=== PATIENT | female | born 1990 | race Caucasian/White ===

== ENCOUNTER 2020-01-07 14:27 | Outpatient (REF) | payer OTHER, SELFPAY | END 2020-01-07 14:28 | disposition home or self-care (01) | LOC: HO.LNP 14:27 | PROVIDERS: Visit Provider Nurse Practitioner Family | DX: Z20.828 Contact with and (suspected) exposure to other viral communicable diseases (principal) | CPT/HCPCS: 87635 ==

== ENCOUNTER 2020-11-16 20:48 | Emergency (ER) | payer OTHER, SELFPAY ==
--- NOTE | ~2020-11-16 | XR_ITS ---
EXAMINATION: XR CHEST CLINICAL INFORMATION: Difficulty breathing COMPARISON: 08/24/2018 TECHNIQUE: 2 views of the chest were obtained. FINDINGS: No significant abnormality is noted involving the heart, lungs, mediastinum, bony thorax or soft tissues. XR/XR chest 2V IMPRESSION: Unremarkable examination.
[2020-11-16 21:25] VITALS: BP 129/82; PULSE 114; RESP 17; TEMP 36.9; O2SAT 98; BMI 39.0
--- NOTE | 2020-11-16 22:32 | ED_ITS ---
HPI - URI/Sore Throat General Chief Complaint: Upper Respiratory Symptoms Stated Complaint: covid symptoms Time Seen by Provider: 11/16/20 22:19 Source: patient Mode of arrival: ambulatory Limitations: no limitations History of Present Illness HPI Narrative: Patient comes emergency room complaining of mild cough, sinus pressure, headaches, nausea, no sense of smell, bilateral ear fullness. Patient's symptoms have been ongoing for about 4 days. Related Data Previous Rx's Medication Instructions Recorded doxycycline hyclate 100 mg tablet 100 mg PO BID 10 Days #20 tab 04/06/20 ciprofloxacin HCl 0.3 % eye drops 2 drp OPHTHALMIC (EYE) Q4H 2 Days 10/30/20 #10 ml fexofenadine 60 mg tablet (Ana 60 mg PO BID #14 tab 11/16/20 Allergy) fluticasone propionate 50 1 spray INTRANASAL BID #16 g 11/16/20 mcg/actuation nasal spray,suspension (Flonase Allergy Relief) Allergies Allergy/AdvReac Type Severity Reaction Status Date / Time clindamycin [CLINDAMYCIN] Allergy Intermediate RASH Verified 11/16/20 21:24 cefaclor [From CECLOR] Allergy Mild RASH Verified 11/16/20 21:24 latex [LATEX] Allergy Mild RASH Verified 11/16/20 21:24 Review of Systems Review of Systems: Constitutional : No Weight loss, No Fever, No Chills, No Night Sweats, No Fatigue, No Malaise ENT/Mouth : No Hearing loss, No Ear Pain, No Nasal Congestion, complaining of Sinus Pain, No Hoarseness, No sore throat, No Rhinorrhea, No Swallowing Difficulty, complaining of loss of smell, complaining of bilateral ear pressure Eyes: No Eye Pain, No Swelling, No Redness, No Foreign Body, No Discharge, No Vision Changes Cardiovascular : No Chest Pain, No SOB, No Dyspnea on Exertion, No Orthopnea, No Edema, No Palpitations Respiratory : Complaining of Cough, No Sputum, No Wheezing, No Smoke Exposure, No Dyspnea Gastrointestinal : No Nausea, No Vomiting, No Diarrhea, No Constipation, No abdominal Pain, No Hematochezia, No Melena Genitourinary : no irregular bleeding, No Dysuria, No Urinary Frequency, No Hematuria, No Urinary Incontinence, No Urgency, No Flank Pain, No Urinary Flow Changes, No Hesitancy Musculoskeletal : No joint pain, No Myalgias, No Joint Swelling Skin : No Skin Lesions, No rash Neuro : No Weakness, No Numbness, No Paresthesias, No Loss of Consciousness, No Dizziness, No Headache Psych : No Anxiety/Panic, No Depression, No SI/HI/AH/VH, No Social Issues, Heme/Lymph: No Bruising, No Bleeding,No Lymphadenopathy Endocrine : No Polyuria, No Polydipsia, No Temperature Intolerance [facility] Past Medical History Medical History Acne Marijuana smoker Obesity Surgical History H/O elbow surgery H/O myringotomy History of ear surgery History of laparoscopic appendectomy (~2010) Social History Social History Alcohol intake: unknown Patient Tobacco Use Status: Tobacco use Unknown Use of substances other than those prescribed or required for medical reasons: Unknown Substance Use Type: Marijuana Advance Directives: No Advance Directives Information Provided: No Patient : No Physical Exam Vital Signs: Vital Signs: Last Vital Signs Temp 98.4 F 11/16/20 21:25 Pulse 114 H 11/16/20 21:25 Resp 17 11/16/20 21:25 BP 129/82 11/16/20 21:25 Pulse Ox 98 11/16/20 21:25 Body Mass Index 39.0 Const: Other: Appearance: Alert. Oriented X3. No acute distress. Eyes: Pupils equal, round and reactive to light. ENT: Pharynx normal. Paranasal Sinus discomfort on palpation. Patient has a chronic left tympanic membrane perforation, patient seems congested Neck: Normal inspection. Neck supple. No lymph nodes noted. No crepitus CVS: Normal heart rate and rhythm. Pulses normal. Normal S1 and S2 Respiratory: No respiratory distress. Breath sounds normal. No Wheezing. No rales Abdomen: Soft and nontender. No rigidity. No distention. good BS x4 Skin: Skin warm and dry. Normal skin color. Normal skin turgor. Extremities: No lower extremity edema. No Lacerations. No Rash Neuro: Oriented X 3. No motor deficit. No sensory deficit. Moving all extermities. No slurred speech. Course Course Course Narrative: I discussed with the patient that her COVID test is negative, patient likely having a viral syndrome. MDM - URI/Sore Throat Lab Data Labs: Lab Results 11/16/20 Range/Units 21:33 Coronavirus (PCR) NEGATIVE (Negative) Influenza Type A (PCR) NEGATIVE (Negative) Influenza Type B (PCR) NEGATIVE (Negative) RSV RNA Qual (PCR) NEGATIVE (Negative) Imaging Data Chest x-ray: Attestation: I personally reviewed and interpreted this imaging study as follows: Radiologist's impression: FINDINGS: No significant abnormality is noted involving the heart, lungs, mediastinum, bony thorax or soft tissues. XR/XR chest 2V IMPRESSION: Unremarkable examination. Discharge Plan Discharge Clinical Impression: Viral sinusitis Patient Disposition: Home, Self-Care Instructions: Sinusitis (ED), Viral Syndrome (ED) Additional Instructions: Your COVID test is negative. Please follow-up with your primary care physician tomorrow. If you have any worsening or new symptoms, please return to the emergency room or call 911 Prescriptions: New fluticasone propionate [Flonase Allergy Relief] 50 mcg/actuation spray,suspension 1 spray intranasal BID Qty: 16 RF: 0 fexofenadine [Ana Allergy] 60 mg tablet 60 mg PO BID Qty: 14 RF: 0 No Action doxycycline hyclate 100 mg tablet 100 mg PO BID 10 Days Qty: 20 RF: 0 ciprofloxacin HCl 0.3 % drops 2 drp ophthalmic (eye) Q4H 2 Days Qty: 10 RF: 0
[2020-11-16 23:28] LABS: Influenza A PCR NEGATIVE (Negative); Influenza B PCR NEGATIVE (Negative); Resp Syncy Virus RNA Qual PCR NEGATIVE (Negative); SARS COV2 PCR INHOUSE NEGATIVE (Negative)
== END 2020-11-17 00:08 | disposition home or self-care (01) ==
PROVIDERS: Emergency Provider Emergency Medicine; PCP Internal Medicine
DX: J32.8 Other chronic sinusitis (principal); Z20.822 Contact with and (suspected) exposure to COVID-19; R43.9 Unspecified disturbances of smell and taste
CPT/HCPCS: 0241U; 36415; 71046; 99283; 99284

== ENCOUNTER 2022-01-16 23:00 | Emergency (ER) | payer OTHER, SELFPAY ==
[2022-01-16 23:08] VITALS: BP 128/75; PULSE 88; RESP 18; TEMP 36.4; O2SAT 96; BMI 39.7
--- NOTE | 2022-01-17 00:13 | ED.GENADULT ---
HPI - General Adult General Chief complaint: Animal Bite Stated complaint: right ankle ?insect bite Time Seen by Provider: 01/16/22 23:56 Source: patient Mode of arrival: ambulatory History of Present Illness HPI narrative: 31-year-old female with suspected spider bite and subsequent swelling, redness to right ankle. Related Data Previous Rx's Medication Instructions Recorded doxycycline hyclate 100 mg tablet 100 mg PO BID folliculitis 10 days 04/06/20 #20 tabs prednisone 20 mg tablet See Rx Instructions PO ONCE 12 12/17/20 days #17 tabs Allergies Allergy/AdvReac Type Severity Reaction Status Date / Time clindamycin [CLINDAMYCIN] Allergy Intermediate RASH Verified 12/17/20 09:44 cefaclor [From CECLOR] Allergy Mild RASH Verified 12/17/20 09:44 latex [LATEX] Allergy Mild RASH Verified 12/17/20 09:44 Review of Systems Review of Systems: Pertinent positives and negatives as stated in HPI 10 point review of systems otherwise negative. PMFSH Past Medical History Source: nursing notes reviewed Medical History Acne Marijuana smoker Obesity Surgical History H/O elbow surgery H/O myringotomy History of ear surgery History of laparoscopic appendectomy (~2010) Family History Family History Other Substance use disorder Social History Social History Housing: House Alcohol intake: unknown Patient Tobacco Use Status: Never used Tobacco Substance Use Type: Marijuana Advance Directives: No Current occupational status: employed Physical Exam ED Vital Signs: Vital Signs - 24 hr 01/16/22 23:08 Temperature 97.5 F Pulse Rate 88 Respiratory Rate 18 Blood Pressure 128/75 Pulse Oximetry 96 Oxygen Delivery Method Room Air BMI result Body Mass Index 39.7 VITAL SIGNS: Reviewed. GENERAL: Well developed, well nourished, in no acute distress. HEAD: Normocephalic/atraumatic EYES: PERRLA, EOMI EARS: Ext canals without abnormality OROPHARYNX: no oral lesions noted, posterior pharynx clear LUNGS: Normal breath sounds. No adventitious sounds or accessory muscle use. SpO2<96> CARDIOVASCULAR: Regular rate and rhythm without noted murmurs ABDOMEN: Soft, non-tender, non-distended with bowel sounds. MUSCULOSKELETAL: No tenderness, deformities, or effusions noted on gross inspection. EXTREMITIES: No cyanosis, clubbing or edema; RIGHT ANKLE: Redness with very mild swelling, no induration SKIN: Inspection of the skin reveals no rashes NEUROLOGIC: Alert and oriented x 4. Strength and sensation to light touch were grossly intact x 4. Course Course Course Narrative: 31-year-old female with history and clinical presentation consistent with most likely spider bite. Suspect that patient's increased pain is due to poor venous flow and applied Caleb wrap and patient reports already feeling better. She is discharged home with instructions for application of lidocaine gel it is available [id number] as well as continue with Benadryl. She is discharged home in stable condition. Discharge Plan Discharge Clinical Impression: Accidental spider bite Patient Disposition: Home, Self-Care Instructions: Insect Bite or Sting (ED) Additional Instructions: Continue with Caleb wrap to provide support. Recommend [id number] lidocaine gel for topical relief. Return to the ER for worsening symptoms. Prescriptions: No Action doxycycline hyclate 100 mg tablet 100 mg PO BID 10 Days Qty: 20 0RF prednisone 20 mg tablet See Rx Instructions PO ONCE 12 Days Qty: 17 0RF Rx Instructions: PO once; 3 tabs for 2 days, then 2 tabs for 3 days, then 1 tab for 3 days, then half tab for 4 days Referrals: Rudy Thorpe MD [Primary Care Provider] -
[2022-01-17] MEDS: Acetaminophen 325 MG TABLET 975 MG PO (00:37)
[2022-01-17] MEDS: Ibuprofen 400 MG TABLET PO (00:37)
== END 2022-01-17 00:41 | disposition home or self-care (01) ==
PROVIDERS: Emergency Provider Student in an Organized Health Care Education/Training Program; PCP Internal Medicine
DX: T63.301A Toxic effect of unspecified spider venom, accidental (unintentional), initial encounter (principal); Y92.9 Unspecified place or not applicable; Z79.899 Other long term (current) drug therapy
CPT/HCPCS: 99283; 99284

== ENCOUNTER 2023-06-19 11:58 | Outpatient (AMB) | payer OTHER, SELFPAY ==
[2023-06-19 12:01] VITALS: BP 140/82; PULSE 74; TEMP 36.8; O2SAT 98; BMI 45.8
--- NOTE | 2023-06-19 12:01 | MHC.OFFWIV ---
Intake Vital Signs 06/19/23 12:01 Height 5 ft 11 in Weight 328 lb 2 oz BMI 45.8 BP 140/82 H Blood Pressure Location Rt brachial Position Sitting Pulse 74 Pulse Source Pulse Oximeter Temp 98.3 F Temp Source Oral Pulse Oximetry (%) 98 Oxygen Delivery Method Room Air Intake Visit Reasons: EP hemorrhoids Intake Note: Pt presents to the office today for c/o hemorrhoids. She states she has had tailbone pain for about a year but within the past few days she has noticed bright red blood coming out of her rectum. Pt denies any other symptoms at this time. Patient Tobacco Use Status: Never used Tobacco Allergies clindamycin [CLINDAMYCIN] Allergy (Intermediate, Verified 06/27/23 13:34) RASH cefaclor [From CECLOR] Allergy (Mild, Verified 06/27/23 13:34) RASH latex [LATEX] Allergy (Mild, Verified 06/27/23 13:34) RASH Medication List - Last Reconciled 06/27/23 by Gunnar Dyer MD hydrocortisone acetate (Anusol-HC) 25 mg CO BEDTIME HPI EP hemorrhoids HPI Details 32 yr old female presents to the office for a sick visit. Requesting treatment for Hemrrhoids. Pt reports pain symptoms and occ passing blood per rectum. [facility] Medical History Obesity Marijuana smoker Acne Surgical History H/O myringotomy H/O elbow surgery History of ear surgery History of laparoscopic appendectomy (~2010) Family History Other Substance use disorder Social History Housing: House Alcohol intake: unknown Patient Tobacco Use Status: Never used Tobacco Substance Use Type: Marijuana Current occupational status: employed Physical Exam Vital Signs: Last Vital Signs Temp 98.3 F 06/19/23 12:01 Pulse 74 06/19/23 12:01 BP 140/82 H 06/19/23 12:01 Pulse Ox 98 06/19/23 12:01 Oxygen Delivery Method Room Air 06/19/23 12:01 BMI result Body Mass Index 45.8 Const Other: This note is dictated on 06/27/2023. Cannot recollect if any physical exam was done. Assessment & Plan Assessment & Plan (1) Acute hemorrhoid: Code(s): K64.9 - Unspecified hemorrhoids Plan: Anusol prescription given. If sx do not improve to follow up here/ Medications: New hydrocortisone acetate (Anusol-HC) 25 mg CO BEDTIME 12 ea 0RF Coding Level of Care Code Est Pt Level 2 (79889) Diagnoses Acute hemorrhoid K64.9
== END 2023-06-19 15:01 | disposition home or self-care (01) ==
PROVIDERS: PCP Internal Medicine; Visit Provider Internal Medicine
DX: K64.9 Unspecified hemorrhoids (principal)
CPT/HCPCS: 99212

== ENCOUNTER 2023-08-08 09:23 | Outpatient (AMB) | payer OTHER, SELFPAY ==
[2023-08-08 09:25] VITALS: BP 126/72; PULSE 79; O2SAT 98; BMI 44.8
--- NOTE | 2023-08-08 09:25 | MHC.PC.OV ---
Vital Signs 08/08/23 09:25 Height 5 ft 11 in Weight 321 lb 8 oz BMI 44.8 BP 126/72 Blood Pressure Location Rt brachial Position Sitting Pulse 79 Pulse Source Pulse Oximeter Pulse Oximetry (%) 98 Oxygen Delivery Method Room Air Intake Visit Reasons: swelling Allergies clindamycin [CLINDAMYCIN] Allergy (Intermediate, Verified 08/08/23 09:28) RASH cefaclor [From CECLOR] Allergy (Mild, Verified 08/08/23 09:28) RASH latex [LATEX] Allergy (Mild, Verified 08/08/23 09:28) RASH Medication List - Last Reconciled 08/08/23 by Rudy Thorpe MD No Known Home Meds Tobacco use date assessed: 08/08/23 Dental Screening Dental Screen Date: 08/08/23 Did you have a dental visit in the last 12 months?: Yes Did you have a dental problem in the last 6 months where you did not have access to dental care?: No Was dental information given to patient?: Patient has dentist HPI swelling HPI Details Patient is a 32-year-old female came in today to talk about multiple medical problems Patient was last seen 2 years ago She has gained a lot of weight her BMI is 44.8 Patient is complaining of swelling both ankles off and on at the end of the day. Patient would like to have labs done to make sure she does not have any liver or kidney problems Order placed to be done fasting She is also complaining of pain both feet, on examination she has a very dry thick skin multiple areas heel and big toe which is cracked open She also have a plantar fasciitis right feet, and callus at the bottom. Podiatry referral placed, we talked about promised stone after shower she has to gently rub it off the skin Also to keep skin moisturized. She has a chronic problem of tailbone pain for the past 6 months, patient does not recall falling She says that it hurts to sit for prolonged periods of time. I have ordered x-ray of her tailbone Meloxicam sent to be taken in the morning with breakfast Patient will return next month for physical examination. She also have internal hemorrhoids which bleed off and on but at this time they are not causing any problem Patient says that when she takes Tylenol it makes her drowsy. [facility] Medical History Obesity Marijuana smoker Acne Surgical History H/O myringotomy H/O elbow surgery History of ear surgery History of laparoscopic appendectomy (~2010) Family History Other Substance use disorder Social History Housing: House Alcohol intake: unknown Patient Tobacco Use Status: Never used Tobacco e-Cigarette/Vaping Use: Never Used Substance Use Type: Marijuana Current occupational status: employed Cognitive needs: No Hearing needs: No Vision needs: No Questionnaire PHQ-9 Over the last 2 weeks, how often have you been bothered by any of the following problems? 1. Little interest or pleasure in doing things: not at all 2. Feeling down, depressed, or hopeless: not at all 3. Trouble falling or staying asleep, or sleeping too much: several days 4. Feeling tired or having little energy: several days 5. Poor appetite or overeating: several days 6. Feeling bad about yourself - or that you are a failure or have let yourself or your family down: not at all 7. Trouble concentrating on things, such as reading the newspaper or watching television: not at all 8. Moving or speaking so slowly that other people could have noticed. Or the opposite - being so fidgety or restless that you have been moving around a lot more than usual: not at all 9. Thoughts that you would be better off or of hurting yourself in some way: not at all Total score: 3 Depression Screening Interpretation: Negative Depression Screening Done: Yes 32131 - PHQ-9 Billing: Yes Source: Developed by Drs. Kelby Dior, Erin Olivas, Cory Nagel and colleagues, with an educational renetta from [employer]. Thrive Questionnaire Date Thrive assessed: 08/08/23 I am a: Patient What is your living situation today?: I have a steady place to live Within the past 12 months, did the food you bought not last and you didn't have the money to get more?: Never true Within the past 12 months, did you worry whether your food would run out before you got money to buy more?: Never true Do you have trouble paying for medicines?: No Do you have trouble getting transportation to medical appointments?: No Do you have trouble paying your heating and electricity bill?: No Do you have trouble taking care of your child, family member or friend?: No Do you have trouble with day-to-day activities such as bathing, preparing meals, shopping, managing finances, etc.?: No Are you currently unemployed and looking for a job?: No Are you interested in more education?: No Please select the resources that you would like help with: None Currently or been in a relationship where the following occur: no concerns reported THRIVE Score: 0 AUDIT C Alcohol Use Questionnaire (AUDIT-C) 1. How often do you have a drink containing alcohol?: Never 3. How often do you have six or more drinks on one occasion?: Never Total Score: 0 Score Reviewed/Action Taken: Yes CARROLL-7 AMB Questionnaire CARROLL-7 Date CARROLL - 7 assessed: 08/08/23 Feeling nervous, anxious, or on edge: 1 = Several days Not being able to stop or control worryin = Not at all Worrying too much about different things: 0 = Not at all Trouble relaxin = Not at all Being so restless that it is hard to sit still: 0 = Not at all Becoming easily annoyed or irritable: 1 = Several days Feeling afraid as if something awful might happen: 0 = Not at all Total CARROLL-7 score (0-4 normal; 5-9 mild; 10-14 moderate; 15-21 severe): 2 Source: Developed by Drs. Kelby Dior, Erin Olivas, Cory Nagel and colleagues, with an educational renetta from [employer]. CARROLL-7 Assessment Billing CARROLL-7 Assessment Tool: CARROLL-7 Assessment 79316 Review of Systems Const Denies chills and Denies fever(s) ENT Denies epistaxis and Denies nasal discharge Card Denies chest pain Resp Denies chest congestion, Denies cough and Denies hemoptysis GI Denies diarrhea and Denies nausea Skin/Breast Denies rash Neuro Reports no additional complaints Psych Reports no additional complaints Endo Reports no additional complaints Physical exam (Primary Care) Vital Signs: Last Vital Signs Pulse 79 08/08/23 09:25 BP 126/72 08/08/23 09:25 Pulse Ox 98 08/08/23 09:25 Oxygen Delivery Method Room Air 08/08/23 09:25 BMI result Body Mass Index 44.8 Tobacco/Smoking Status: Tobacco use Status Tobacco use date assessed 08/08/23 08/08/23 09:29 Patient Tobacco Use Status Never used Tobacco 08/08/23 09:29 e-Cigarette/Vaping Use Never Used 08/08/23 09:29 PHQ-9: PHQ-9 Score PHQ-9: Total score 3 08/08/23 09:55 Depression Screening Interpretation: Negative Thrive Assessment: Date of Thrive Assessment Date Thrive assessed 08/08/23 08/08/23 09:49 Currently or been in a relationship where the following occur: no concerns reported Const General: cooperative, comfortable and no acute distress Orientation/consciousness: patient oriented x3 HENMT Head: Yes normocephalic Eyes General: appearance normal, both eyes and all related structures Neck Neck: Yes supple Resp Effort & Inspection: normal respiratory effort, no cough and no stridor Cardio Rhythm: regular rhythm Heart sounds: S1 normal heart sound present and S2 normal heart sound present Back/Spine/Pelvis Back/spine/pelvis image: 1. Site of pain with pressure Skin General skin exam: turgor normal Neuro General: patient oriented x3, tone normal and moves all extremities Extrem Other: Mild ankle swelling without pitting edema Right lower extremity: no edema Left lower extremity: no edema Ankle/foot/toe images: 1. Thick cracked skin 2. Pain with pressure 3. Pick cracked skin 4. Cracked skin 5. Thickened cracked skin Assessment and Plan Assessment & Plan (1) Coccygeal pain, chronic: Code(s): M53.3 - Sacrococcygeal disorders, not elsewhere classified; G89.29 - Other chronic pain (2) Morbid obesity due to excess calories: Code(s): E66.01 - Morbid (severe) obesity due to excess calories (3) Swollen ankles: Code(s): M25.471 - Effusion, right ankle; M25.472 - Effusion, left ankle (4) Plantar fasciitis of right foot: Code(s): M72.2 - Plantar fascial fibromatosis (5) Callus of foot: Code(s): L84 - Corns and callosities (6) Internal hemorrhoids: Code(s): K64.8 - Other hemorrhoids Plan Patient is a 32-year-old female came in today to talk about multiple medical problems Patient was last seen 2 years ago She has gained a lot of weight her BMI is 44.8 Patient is complaining of swelling both ankles off and on at the end of the day. Patient would like to have labs done to make sure she does not have any liver or kidney problems Order placed to be done fasting She is also complaining of pain both feet, on examination she has a very dry thick skin multiple areas heel and big toe which is cracked open She also have a plantar fasciitis right feet, and callus at the bottom. Podiatry referral placed, we talked about promised stone after shower she has to gently rub it off the skin Also to keep skin moisturized. She has a chronic problem of tailbone pain for the past 6 months, patient does not recall falling She says that it hurts to sit for prolonged periods of time. I have ordered x-ray of her tailbone Meloxicam sent to be taken in the morning with breakfast Patient will return next month for physical examination. She also have internal hemorrhoids which bleed off and on but at this time they are not causing any problem Patient says that when she takes Tylenol it makes her drowsy. 50 minute spent in care of this patient, including [id number], discussing medical issues treatment options Ordering labs, referrals, charting, coordination of care Orders: Orders XR sacrum coccyx min 2V Today G89.29 - Other chronic pain, M53.3 - Sacrococcygeal disorders, not elsewhere classified Complete Blood Count Auto Diff Today E66.01 - Morbid (severe) obesity due to excess calories, G89.29 - Other chronic pain, M25.471 - Effusion, right ankle, M25.472 - Effusion, left ankle, M53.3 - Sacrococcygeal disorders, not elsewhere classified, R58 - Hemorrhage, not elsewhere classified Comprehensive [place]. Panel Fast Today E66.01 - Morbid (severe) obesity due to excess calories, G89.29 - Other chronic pain, M25.471 - Effusion, right ankle, M25.472 - Effusion, left ankle, M53.3 - Sacrococcygeal disorders, not elsewhere classified, R58 - Hemorrhage, not elsewhere classified Lipid Panel Today E66.01 - Morbid (severe) obesity due to excess calories, G89.29 - Other chronic pain, M25.471 - Effusion, right ankle, M25.472 - Effusion, left ankle, M53.3 - Sacrococcygeal disorders, not elsewhere classified, R58 - Hemorrhage, not elsewhere classified TSH reflex Free T4 Today E66.01 - Morbid (severe) obesity due to excess calories, G89.29 - Other chronic pain, M25.471 - Effusion, right ankle, M25.472 - Effusion, left ankle, M53.3 - Sacrococcygeal disorders, not elsewhere classified, R58 - Hemorrhage, not elsewhere classified Referrals Podiatry Referral L84 - Corns and callosities, M72.2 - Plantar fascial fibromatosis Medications: New meloxicam 15 mg PO DAILY 14 tabs 0RF 14 days Coding Level of Care Code Est Pt Level 5 (61392) Complex EM visit Add On G2211 Diagnoses Coccygeal pain, chronic M53.3; G89.29 Morbid obesity due to excess calories E66.01 Swollen ankles M25.471; M25.472 Plantar fasciitis of right foot M72.2 Callus of foot L84 Internal hemorrhoids K64.8 Additional Codes CARROLL-7 Assessment Billing - CARROLL-7 Assessment Tool: CARROLL-7 Assessment 14307 ([id number])
== END 2023-08-08 11:48 | disposition home or self-care (01) ==
PROVIDERS: PCP Internal Medicine; Visit Provider Internal Medicine
DX: G89.29 Other chronic pain (principal); M53.3 Sacrococcygeal disorders, not elsewhere classified; E66.01 Morbid (severe) obesity due to excess calories; Z68.41 Body mass index [BMI] 40.0-44.9, adult; M25.471 Effusion, right ankle; M25.472 Effusion, left ankle; M72.2 Plantar fascial fibromatosis; L84 Corns and callosities; K64.8 Other hemorrhoids
CPT/HCPCS: 99215; G2211

== ENCOUNTER 2023-08-09 07:35 | Outpatient (REF) | payer OTHER, SELFPAY ==
[2023-08-09 10:09] LABS: MANUAL DIFF FLAG NO
[2023-08-09 10:20] LABS: Basophils Percent Auto 0.5 % (0-2); Eosinophils Absolute Auto 0.2 X10*3/uL (0.0-0.4); Eosinophils Percent Auto 2.8 % (0-4); Hematocrit 37.4 % (37.0-47.0); Hemoglobin 12.4 g/dl (12.0-16.0); Imm Gran Abs Auto 0.02 X10*3/uL (0.00-0.03); Imm Gran Pct Auto 0.3 % (0.0-0.4); Lymphocytes Absolute Auto 2.2 X10*3/uL (1.2-4.9); Lymphocytes Percent Auto 29.7 % (20-40); Mean Corpuscular HGB Conc 33.2 g/dl (31.0-35.0); Mean Corpuscular Hemoglobin 27.7 pg (27.0-33.0); Mean Corpuscular Volume 83.7 fL (80.0-98.0); Mean Platelet Volume 11.8 fL (9.4-12.3); Monocytes Absolute Auto 0.5 X10*3/uL (0.1-1.2); Monocytes Percent Auto 6.6 % (2-11); Neutrophils Absolute Auto 4.5 x10*3/uL (2.0-8.3); Neutrophils Percent Auto 60.1 % (45-73); Platelet Count 296 X10*3/uL (160-400); Red Blood Count 4.47 X10*6/uL (4.20-5.50); Red Cell Distribution Width 13.2 % (11.0-16.0); White Blood Count 7.4 X10*3/uL (4.8-10.8)
[2023-08-09 10:45] LABS: Alanine Aminotransferase 19 U/L (0-31); Albumin Level 3.9 g/dL (3.5-5.0); Alkaline Phosphatase 41 U/L (39-117); Anion Gap 11 (12-20); Aspartate Amino Transferase 21 U/L (5-31); Bilirubin Total 0.4 mg/dL (0.0-1.0); Blood Urea Nitrogen 11 mg/dL (9-16); Calcium 8.8 mg/dL (8.4-10.2); Carbon Dioxide 24 mmol/L (22-29); Chloride 109 mmol/L (96-108); Cholesterol 118 mg/dL (<200); Estimated Glomerular Filt Rate > 60; Glucose Fasting 98 mg/dL (60-99); HDL Cholesterol 40 mg/dL (>40); LDL Cholesterol Calculated 65 mg/dL (<100); Sodium 140 mmol/L (135-145); Total Protein 6.8 g/dL (6.5-8.0); Triglycerides 69 mg/dL (<150)
[2023-08-09 11:03] LABS: TSH reflex Free T4 2.16 uIU/mL (0.32-4.0)
== END 2023-08-09 07:36 | disposition home or self-care (01) ==
LOC: HO.HMGCLDS 07:35
PROVIDERS: PCP Internal Medicine; Visit Provider Internal Medicine
DX: E66.01 Morbid (severe) obesity due to excess calories (principal); M25.471 Effusion, right ankle; M25.472 Effusion, left ankle; R58 Hemorrhage, not elsewhere classified; M53.3 Sacrococcygeal disorders, not elsewhere classified; G89.29 Other chronic pain
CPT/HCPCS: 36415; 80053; 80061; 84443; 85025

== ENCOUNTER 2023-08-10 12:14 | Outpatient (REF) | payer OTHER, SELFPAY ==
--- NOTE | ~2023-08-10 | XR_ITS ---
EXAMINATION: XR SACRUM AND COCCYX CLINICAL INFORMATION: Low back pain COMPARISON: None available. TECHNIQUE: 2 views of the sacrum and 2 views of the coccyx were obtained. FINDINGS: The SI joints are symmetric. The sacrum is intact. No fracture or destructive process. Surgical clips overlie the right SI joint. XR/XR sacrum coccyx min 2V IMPRESSION: Negative study.
== END 2023-08-10 12:15 | disposition home or self-care (01) ==
LOC: HO.HMGCX 12:14
PROVIDERS: PCP Internal Medicine; Visit Provider Internal Medicine
DX: M53.3 Sacrococcygeal disorders, not elsewhere classified (principal); G89.29 Other chronic pain
CPT/HCPCS: 72220

== ENCOUNTER 2023-09-11 09:50 | Outpatient (AMB) | payer OTHER, SELFPAY ==
[2023-09-11 09:56] VITALS: BP 140/80; PULSE 82; O2SAT 97; BMI 45.0
--- NOTE | 2023-09-11 09:56 | MHC.PC.OV ---
Vital Signs 09/11/23 09:56 Height 5 ft 11 in Weight 322 lb 8 oz BMI 45.0 BP 140/80 H Blood Pressure Location Rt brachial Position Sitting Pulse 82 Pulse Source Pulse Oximeter Pulse Oximetry (%) 97 Oxygen Delivery Method Room Air Intake Visit Reasons: Annual PE Allergies clindamycin [CLINDAMYCIN] Allergy (Intermediate, Verified 09/11/23 09:56) RASH cefaclor [From CECLOR] Allergy (Mild, Verified 09/11/23 09:56) RASH latex [LATEX] Allergy (Mild, Verified 09/11/23 09:56) RASH Tobacco use date assessed: 09/11/23 Dental Screening Dental Screen Date: 09/11/23 Did you have a dental visit in the last 12 months?: Yes Did you have a dental problem in the last 6 months where you did not have access to dental care?: No Was dental information given to patient?: Patient has dentist HPI Annual PE HPI Details Patient is a 32-year-old female came in today for physical examination OBGYN : Dr Toney, just had visit early this month Labs were done last month, reviewed again BMI is elevated patient need to lose weight, dietitian consultation offered Patient was complaining of tailbone pain last visit, x-ray was done which was unremarkable She has started going to chiropractor and is feeling better. She has not made appointment with the electronic publications specialist yet however she does have a letter Patient says that she did not do she had to call in book the appointment she was waiting for the call. Notify patient that there is a number in the lateral she has to call in book her own appointment for that. Follow-up 1 year for physical exam [facility] Medical History Obesity Marijuana smoker Acne Surgical History H/O myringotomy H/O elbow surgery History of ear surgery History of laparoscopic appendectomy (~2010) Family History Other Substance use disorder Social History Housing: House Alcohol intake: unknown Patient Tobacco Use Status: Never used Tobacco e-Cigarette/Vaping Use: Never Used Substance Use Type: Marijuana Current occupational status: employed Cognitive needs: No Hearing needs: No Vision needs: No Questionnaire Thrive Questionnaire Date Thrive assessed: 08/08/23 AUDIT C Alcohol Use Questionnaire (AUDIT-C) 1. How often do you have a drink containing alcohol?: Never 3. How often do you have six or more drinks on one occasion?: Never Total Score: 0 Score Reviewed/Action Taken: Yes CARROLL-7 AMB Questionnaire CARROLL-7 Date CARROLL - 7 assessed: 08/08/23 Source: Developed by Drs. Kelby Dior, Erin Olivas, Cory Nagel and colleagues, with an educational renetta from [employer]. Review of Systems Const Denies chills, Denies fever(s) and Denies headache(s) Eyes Denies blurry vision ENT Denies headache(s), Denies nasal discharge, Denies nasal obstruction, Denies odynophagia and Denies sinus pain Card Denies chest pain at rest and Denies chest pain with activity Resp Denies cough and Denies hemoptysis GI Denies diarrhea, Denies odynophagia, Denies vomiting and Denies hematemesis Reports as per HPI Musc Denies abnormal gait Skin/Breast Reports as per HPI Neuro Denies Neuro-related abnormal movements, Denies Abnormal speech present, Denies abnormal gait, Denies headache(s) and Denies Sensory deficit (Neuro) Psych Denies mood swings and Denies paranoia Endo Reports as per HPI Claus/Lymph Reports as per HPI Aller/Immun Reports as per HPI Physical exam (Primary Care) Vital Signs: Last Vital Signs Pulse 82 09/11/23 09:56 BP 140/80 H 09/11/23 09:56 Pulse Ox 97 09/11/23 09:56 Oxygen Delivery Method Room Air 09/11/23 09:56 BMI result Body Mass Index 45.0 Tobacco/Smoking Status: Tobacco use Status Tobacco use date assessed 09/11/23 09/11/23 09:58 Patient Tobacco Use Status Never used Tobacco 09/11/23 09:58 e-Cigarette/Vaping Use Never Used 09/11/23 09:58 Thrive Assessment: Date of Thrive Assessment Date Thrive assessed 08/08/23 09/11/23 09:58 Const General: cooperative, comfortable and no acute distress Orientation/consciousness: patient oriented x3 HENMT Head: Yes normocephalic and Yes atraumatic Eyes General: appearance normal, both eyes and all related structures Pupils: Equal, round and reactive pupils present EOM: EOMs intact bilaterally Neck Neck: Yes supple and No lymphadenopathy Thyroid: Thyroid normal Lymphatic: no lymphadenopathy noted Resp Effort & Inspection: normal respiratory effort and able to speak in complete sentences Auscultation: clear to auscultation bilaterally Cardio Heart sounds: S1 normal heart sound present and S2 normal heart sound present GI Palpation (GI): Soft to palpation and nontender Auscultation: normal bowel sounds General: Yes no CVA tenderness Back/Spine/Pelvis Back: no CVA tenderness Skin General skin exam: elasticity normal and turgor normal Neuro General: patient oriented x3 and gait normal Cranial nerves: Yes Equal, round and reactive pupils present Speech: No Abnormal speech present Sensory Exam: No Sensory deficit (Neuro) Coordination: tandem gait normal and Romberg test negative Extrem General: Yes normal exam except as noted and No edema Assessment and Plan Assessment & Plan (1) Encounter for general adult medical examination with abnormal findings: Code(s): Z00.01 - Encounter for general adult medical examination with abnormal findings (2) Morbid obesity due to excess calories: Code(s): E66.01 - Morbid (severe) obesity due to excess calories (3) Internal hemorrhoids: Code(s): K64.8 - Other hemorrhoids (4) Plantar fasciitis of right foot: Code(s): M72.2 - Plantar fascial fibromatosis (5) Coccygeal pain, chronic: Code(s): M53.3 - Sacrococcygeal disorders, not elsewhere classified; G89.29 - Other chronic pain Plan Patient is a 32-year-old female came in today for physical examination OBGYN : Dr Toney, just had visit early this month Labs were done last month, reviewed again BMI is elevated patient need to lose weight, dietitian consultation offered Patient was complaining of tailbone pain last visit, x-ray was done which was unremarkable She has started going to chiropractor and is feeling better. She has not made appointment with the electronic publications specialist yet however she does have a letter Patient says that she did not do she had to call in book the appointment she was waiting for the call. Notify patient that there is a number in the lateral she has to call in book her own appointment for that. Follow-up 1 year for physical exam Coding Level of Care Code Est Pt Prev Care 18-39y(71646) Diagnoses Encounter for general adult medical examination with abnormal findings Z00.01 Morbid obesity due to excess calories E66.01 Internal hemorrhoids K64.8 Plantar fasciitis of right foot M72.2 Coccygeal pain, chronic M53.3; G89.29
== END 2023-09-11 10:12 | disposition home or self-care (01) ==
PROVIDERS: PCP Internal Medicine; Visit Provider Internal Medicine
DX: Z00.00 Encounter for general adult medical examination without abnormal findings (principal); E66.01 Morbid (severe) obesity due to excess calories; Z68.42 Body mass index [BMI] 45.0-49.9, adult; K64.8 Other hemorrhoids; M72.2 Plantar fascial fibromatosis; M53.3 Sacrococcygeal disorders, not elsewhere classified; G89.29 Other chronic pain
CPT/HCPCS: 99395

== ENCOUNTER 2024-12-15 11:06 | Outpatient (AMB) | payer OTHER, SELFPAY ==
[2024-12-15 11:40] VITALS: BP 122/80; PULSE 73; TEMP 36.8; O2SAT 99; BMI 46.6
--- NOTE | 2024-12-15 11:40 | MHC.OFFWIV ---
Intake Vital Signs 12/15/24 11:40 Height 5 ft 11 in Weight 334 lb BMI 46.6 BP 122/80 Blood Pressure Location Rt brachial Position Sitting Pulse 73 Pulse Source Pulse Oximeter Temp 98.2 F Temp Source Oral Pulse Oximetry (%) 99 Oxygen Delivery Method Room Air Intake Visit Reasons: EP-lt ear infection,sinus congestion,body weakness Patient Tobacco Use Status: Never used Tobacco Allergies clindamycin (CLINDAMYCIN) Allergy (Intermediate, Verified 12/15/24 11:40) RASH cefaclor (From CECLOR) Allergy (Mild, Verified 12/15/24 11:40) RASH latex (LATEX) Allergy (Mild, Verified 12/15/24 11:40) RASH Medication List - Last Reconciled 12/15/24 by Hope Huber NP amoxicillin-pot clavulanate 875-125 mg 1 tab PO BID 7 days benzonatate 200 mg (2 x 100 mg) PO BID prednisone 50 mg PO DAILY 5 days Do you need a note to return to daycare/school/sports/work: Yes [facility] Medical History (Updated 12/15/24 @ 12:12 by Hope Huber NP) Acute respiratory disease Obesity Marijuana smoker Acne Surgical History H/O myringotomy H/O elbow surgery History of ear surgery History of laparoscopic appendectomy (~2010) Family History Other Substance use disorder Social History Housing: House Alcohol intake: unknown Patient Tobacco Use Status: Never used Tobacco e-Cigarette/Vaping Use: Never Used Substance Use Type: Marijuana Current occupational status: employed Cognitive needs: No Hearing needs: No Vision needs: No Review of Systems Const All systems reviewed & are unremarkable except as noted in HPI and below Physical Exam Vital Signs: Last Vital Signs Temp 98.2 F 12/15/24 11:40 Pulse 73 12/15/24 11:40 BP 122/80 12/15/24 11:40 Pulse Ox 99 12/15/24 11:40 Oxygen Delivery Method Room Air 12/15/24 11:40 BMI result Body Mass Index 46.6 Const General: no acute distress Nutritional Appearance: obese Orientation/consciousness: patient oriented x3 HEENT Head: Yes normocephalic Ears: external ears normal and TM abnormal bulging on the left, erythematous on the left and retracted on the left General nose exam: Normal external nose present and Nasal discharge present Face and sinus: Yes sinuses nontender Mouth: moist mucous membranes Throat: Yes uvula midline and Yes postnasal drainage Resp Effort & Inspection: normal respiratory effort Auscultation: clear to auscultation bilaterally, no crackles, no rales, rhonchi and wheezes scattered wheezes Cardio Heart sounds: S1 normal heart sound present and S2 normal heart sound present Neuro General: patient oriented x3 Assessment & Plan Assessment & Plan (1) Otitis media: Comment: Code(s): H66.90 - Otitis media, unspecified, unspecified ear Plan: Ordered Amoxicillin which will cover for both Otitis and Lower respiratory infection. Pt has taken PCP before with no reaction - okay to prescribe (she is allergic to Ceclor) Rest and hydrate well. Acetaminophen for pain relief. (2) Acute respiratory disease: Code(s): J06.9 - Acute upper respiratory infection, unspecified Plan: Ordered SARs Viral vs Bacterial Orders: Orders SARS-CoV2/FLU/RSV Today J06.9 - Acute upper respiratory infection, unspecified Medications: New benzonatate 200 mg (2 x 100 mg) PO BID 60 caps 0RF J06.9 - Acute upper respiratory infection, unspecified amoxicillin-pot clavulanate 875-125 mg 1 tab PO BID 14 tabs 0RF 7 days H66.90 - Otitis media, unspecified, unspecified ear prednisone 50 mg PO DAILY 5 tabs 0RF 5 days J06.9 - Acute upper respiratory infection, unspecified Coding Level of Care Code Est Pt Level 4 (09139) Diagnoses Otitis media H66.90 Acute respiratory disease J06.9 Time Spent (min) 20
--- OUTSIDE RECORDS SUMMARY | 2024-12-15 13:45 | XMS_ITS | Patient Health Record ---
Author Organization [facility] Address [address] [place] [address] Care Team Providers Care Career Coordinator Name Role Phone Lucinda Howard MD Primary Care Provider UnavailEd Cueva Unavailable [phone] Allergies Allergen (clinical drug ingredient) Drug/Non Drug Allergy documented on EMR Reaction Allergy Type Onset Date Status cefaclor Ceclore (uncoded) rash Allergy Ac tive clindamycin Clindamycin HCl rash Drug Allergy Active latex rash Drug Allergy Active Reason For Referral No Information Medications Medication SIG (Take, Route, Frequency, Duration) Notes Start Date End Date Status Reclipsen 0.15-30 MG-MCG 1 tablet Orally Once a day; Duration: 28 day(s) Active Problems Problem Type SNOMED Code ICD Code Onset Dates Problem Status W/U Status Risk Notes Problem Ingrowing nail (859178609) Ingrowing Nail (703.0) Active confirmed Plan Of Treatment No Information Insurance Providers Payer Name Payer Address Payer Phone Subscriber Number Group Number Insured Name Patient Relationship to Insured Coverage Start Date Coverage End Date [facility] [address] [place] [address] [id number] Mariam Elkins Self - patient is the insured Medical (General) History Medical History History ICD Code chicken pox Surgical History Surgery Date(Month/Year) ear surgery (tubes) appendectomy 12/13/2011
--- OUTSIDE RECORDS SUMMARY | 2024-12-15 13:45 | XMS_ITS | Patient Health Record ---
Author Organization [employer] [facility] Address [address] [place] [address] Care Team Providers Care Insurance Office Supervisor Name Role Phone JOCELYNE GARCIA Primary Care Provider Yandy Powers Unavailable [phone] Allergies Allergen (clinical drug ingredient) Drug/Non Drug Allergy documented on EMR Reaction Allergy Type Onset Date Status clindamycin Clindamycin HCl Skin Rash Drug Allergy Active cefaclor Cefaclor Skin rash Drug Allergy Active Latex Latex Skin Rash Allergy Active Results Component Value Reference Range Notes Urinalysis Reviewed date:09/05/2024 03:14:58 PM Interpretation: Performing Lab: Notes/Report: PH 5.0 PROTEIN Neg GLUCOSE Neg BLOOD Neg [id number] IGP No Culture 30 Plus Reviewed date:09/10/2024 07:54:51 AM Interpretation: Performing Lab:[facility], [address], [address], House, Phone - [phone], Director - [facility] Notes/Report: Clinical Information:Vaginal/Cervical, LMP: [id number] LMP / Prev Treat...[id number] Dates / Results....02/06/22 NIL, Neg HPV No. of containers..01 ThinPrep Vial DIAGNOSIS: NEGATIVE FOR INTRAEPITHELIAL LESION OR MALIGNANCY. PREDOMINANCE OF COCCOBACILLI CONSISTENT WITH SHIFT IN VAGINAL FADY IS PRESENT. Specimen adequacy: Satisfactory for evaluation. Endocervical and/or squamous metaplastic cells (endocervical component) are present. Clinician provided ICD10: Z0 1.419 Performed by: Kennedy Powell , Cushion Assembler (ASCP) . . Note: The Pap smear is a screening test designed to aid in the detection of premalignant and malignant conditions of the uterine cervix. It is not a diagnostic procedure and should not be used as the sole means of detecting cervical cancer. Both false-positive and false-negative reports do occur. . Test Methodology: This liquid based ThinPrep(R) pap test was screened with the use of an image guided system. HPV Aptima Negative Negative This nucleic acid amplification test detects fourteen high-risk HPV types (16,18,31,33,35,39,45,51,52,56,5 8,59,66,68) without differentiation. HPV Genotype Reflex Criteria not met, HPV Genotype not performed. PDF Report Reviewed date:09/10/2024 07:54:26 AM Interpretation: Performing Lab:[facility] [place], [address], [address], [place], Phone - [phone], Director - [facility] Notes/Report: Clinical Information:Vaginal/Cervical, LMP: [id number] LMP / Prev Treat...WUL=[id number] Dates / Results....02/06/22 NIL, Neg HPV No. of containers..01 ThinPrep Vial Reason For Referral No Information Medications Medication SIG (Take, Route, Frequency, Duration) Notes Start Date End Date Status Vitamin D3 125 MCG (5000 UT) 1 capsule Orally Once a week, 1 OTC unknown dose daily Takes 1 Weekly Dose and 1 OTC 09/05/2024 Active Magnesium Active Collagen Active Social History Tobacco Use: Social History Observation Description Date Details (start date - stop date) Former Smoker NA - NA Sexual History Question Answer Notes Had sex in the past 12 months (vaginal, oral, or anal)? Yes with Men only Prevention strategies discussed: Other Tobacco use other than smoking: Question Answer Notes Are you an other tobacco user? No AUDIT-C (Standard) Question Answer Notes Did you have a drink containing alcohol in the p ast year? No Points 0 Interpretation Negative Tobacco Control (Standard) Question Answer Notes Tobacco use: Former smoker How long has it been since you last smoked? 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) Active confirmed Major Problem Abnormal vaginal bleeding (036125681) Other disorder of menstruation and other abnormal bleeding from female genital tract (626.8) Active confirmed Diag Problem Surveillance of oral contraception done (754648027067151) Surveillance of previously prescribed contraceptive pill (V25.41) Active confirmed Diag Problem Contraception care management (785822969) Other specified contraceptive management (V25.8) Active confirmed Diag Vital Signs Temperature 97.9 degrees Fahrenheit 09/05/2024 Blood pressure diastolic 86 mm Hg 09/05/2024 Height 68.5 in 09/05/2024 Blood pressure systolic 128 mm Hg 09/05/2024 Weight 330 lbs 09/05/2024 BMI 49.44 kg/m2 09/05/2024 Encounters Encounter Location Date Provider Diagnosis [address] [address] 09/05/2024 Yandy Mandel Encounter for gynecological examination (general) (routine) without abnormal findings Z01.419 ; Encounter for surveillance of contraceptives, unspecified Z30.40 ; Other specified counseling Z71.89 and Morbid (severe) obesity due to excess calories E66.01 Assessments Encounter Date Diagnosis (ICD Code) Assessment Notes Treatment Notes Treatment Clinical Notes Section Notes 09/05/2024 Encounter for gynecological examination (general) (routine) without abnormal findings (ICD-10 - Z01.419) PAP TEST WITH HPV TYPING WAS OBTAINED. 09/05/2024 Encounter for surveillance of contraceptives, unspecified (ICD-10 - Z30.40) PAT AND WILL NOT MIND ANOTHER . 09/05/2024 Other specified counseling (ICD-10 - Z71.89) FOLIC ACID 400 MCG DAILY. 09/05/2024 Morbid (severe) obesity due to excess calories (ICD-10 - E66.01) DISCUSSED NEGATIVE EFFECTS OF MORBID OBESITY ON HER LIFE. ENCOURAGED PAT TO JOIN [employer]. ALSO ADVISED HER TO CONSIDER DISCUSSING SEMAGLUTIDE INJECTIONS FOR WEIGHT LOSS WITH HER PCP. Plan Of Treatment Pending Test Test Name Order Date Test, Urine 02/13/2019 Urinalysis 01/03/2019 Next Appt Details Provider Name:Yandy churchill, 09/11/2025 03:00:00 PM, [address], [address], [place], [address], Insurance Providers Payer Name Payer Address Payer Phone Subscriber Number Group Number Insured Name Patient Relationship to Insured Coverage Start Date Coverage End Date [facility] [address] [address] [place] [address] [id number] ONEIL CASTILLO Self - patient is the insured Medical (General) History Medical History History ICD Code Other specified abnormal uterine and vag inal bleeding N93.8 Benign neoplasm of vulva D28.0 Morbid (severe) obesity due to excess ca lories E66.01 Amenorrhea, unspecified N91.2 Diffuse cystic mastopathy of right breas t N60.11 Surgical History Surgery Date(Month/Year) Appendectomy 2010 Broken Elbow 1994 Ear Drum Replacement 2009 Hospitalization History Reason Date(Month/Year) Pancreatitis 06/2015 See Surgical Hx
== END 2024-12-15 12:14 | disposition home or self-care (01) ==
PROVIDERS: PCP Internal Medicine; Visit Provider Nurse Practitioner Family
DX: H66.90 Otitis media, unspecified, unspecified ear (principal); J06.9 Acute upper respiratory infection, unspecified

== ENCOUNTER 2024-12-15 11:06 | Outpatient (REF) | payer OTHER, SELFPAY ==
[2024-12-15 14:00] LABS: Resp Syncy Virus RNA Qual PCR NEGATIVE (Negative); SARS COV2 PCR INHOUSE NEGATIVE (Negative)
== END 2024-12-15 11:07 | disposition home or self-care (01) ==
LOC: HO.LAB 11:06
PROVIDERS: PCP Internal Medicine; Visit Provider Nurse Practitioner Family
DX: H66.92 Otitis media, unspecified, left ear (principal); J06.9 Acute upper respiratory infection, unspecified
CPT/HCPCS: 87637; 99212

== ENCOUNTER 2025-01-05 10:35 | Outpatient (AMB) | payer OTHER, SELFPAY ==
[2025-01-05 11:01] VITALS: BP 118/76; PULSE 89; TEMP 36.7; O2SAT 97; BMI 46.6
--- NOTE | 2025-01-05 11:01 | AM.OFFWIN_ITS ---
Intake Vital Signs 01/05/25 11:01 Height 5 ft 11 in Weight 334 lb BMI 46.6 BP 118/76 Blood Pressure Location Rt brachial Position Sitting Pulse 89 Pulse Source Pulse Oximeter Temp 98.1 F Temp Source Oral Pulse Oximetry (%) 97 Oxygen Delivery Method Room Air Intake Visit Reasons: ep sinus congestion coughing nothing coming up Intake Note: pt is here for sinus congestion, with difficulty breathing. She was here recently and was prescribed medications that have been completed but still not feeling better. Patient Tobacco Use Status: Never used Tobacco Allergies clindamycin (CLINDAMYCIN) Allergy (Intermediate, Verified 01/05/25 11:01) RASH cefaclor (From CECLOR) Allergy (Mild, Verified 01/05/25 11:01) RASH latex (LATEX) Allergy (Mild, Verified 01/05/25 11:01) RASH Do you need a note to return to daycare/school/sports/work: No HPI HPI Comments History of Present Illness Details 34 y/o Female patient who presents to [facility] in clinic with c/o SOB, wheezing, Chest tightness, and cough since yesterday. Pt was recently seen here at the [facility] in 12/15/24 for similar concerns. She was treated with Augmentin, and prednisone. Pt reports feeling better for 2 weeks until yesterday when symptoms returned. She does report a remote h/o Asthma as child - she used Advair with good relief. Denies Fevers, chills, nausea or vomiting. [facility] Medical History (Updated 01/05/25 @ 12:13 by Hope Huber NP) Cough Wheezing on auscultation Acute respiratory disease Obesity Marijuana smoker Acne Surgical History H/O myringotomy H/O elbow surgery History of ear surgery History of laparoscopic appendectomy (~2010) Family History Other Substance use disorder Social History Housing: House Alcohol intake: unknown Patient Tobacco Use Status: Never used Tobacco e-Cigarette/Vaping Use: Never Used Substance Use Type: Marijuana Current occupational status: employed Cognitive needs: No Hearing needs: No Vision needs: No Review of Systems Const All systems reviewed & are unremarkable except as noted in HPI and below Physical Exam Vital Signs: Last Vital Signs Temp 98.1 F 01/05/25 11:01 Pulse 89 01/05/25 11:01 BP 118/76 01/05/25 11:01 Pulse Ox 97 01/05/25 11:01 Oxygen Delivery Method Room Air 01/05/25 11:01 BMI result Body Mass Index 46.6 Const General: no acute distress Nutritional Appearance: obese Orientation/consciousness: patient oriented x3 HEENT Head: Yes normocephalic Ears: external ears normal and TM abnormal bulging and with fluid behind the TM bilateral General nose exam: Normal nasal mucous membranes and turbinates present Face and sinus: Yes sinuses nontender Mouth: moist mucous membranes Throat: Yes uvula midline Resp Effort & Inspection: normal respiratory effort and able to speak in complete sentences Auscultation: no crackles, no rales, no rhonchi and wheezes scattered wheezes Cardio Heart sounds: S1 normal heart sound present and S2 normal heart sound present Neuro General: patient oriented x3, gait normal and moves all extremities Psych Speech and movement: Normal speech and movement present Office Procedures Nebulizer Treatment Nebulizer Treatment 36576-[id number]/MDI RX initial, or Nebulizer Subsequent Treatment Office Meds ipratropium 0.5 mg-albuterol 3 mg (2.5 mg base)/3 mL nebulization soln Performing Provider: Hope Huber NP Performing Location: [facility] Administered by: Hope Huber NP on 01/05/25 12:17 Dose Route Admin Location Dispensed Lot Number Expiration Date [facility] Transmission Supervisor 3 mL inhalation 3 mL Assessment & Plan Assessment & Plan (1) Wheezing on auscultation: Code(s): R06.2 - Wheezing Plan: DDx's: Acute Asthma exacerbation vs Pneumonia vs Bronchitis vs Viral. She tested negative on Respiratory Panel back in Nov - no recent sick contact. Ordered Neb Tx in office with good symptom relief. Ordered Chest Xray to r/o Pneumonia. Ordered Symbicort inhaler for daily use - she probably have underlining Asthma condition. Will Tx with Zpack, Cefuroxime, and Prednisone. (2) Cough: Code(s): R05 - Cough Plan: DDx's: Acute Asthma exacerbation vs Pneumonia vs Bronchitis vs Viral. She tested negative on Respiratory Panel back in Nov - no recent sick contact. Ordered Neb Tx in office with good symptom relief. Ordered Chest Xray to r/o Pneumonia. Ordered Symbicort inhaler for daily use - she probably have underlining Asthma condition. Will Tx with Zpack, Cefuroxime, and Prednisone. Orders: Orders AMB Nebulizer Treatment Today R06.2 - Wheezing XR chest 2V Today R05.9 - Cough, unspecified Medications: New cefuroxime axetil 500 mg PO BID 10 tabs 0RF 5 days R05 - Cough, R06.2 - Wheezing prednisone 20 mg PO DAILY 10 tabs 0RF R06.2 - Wheezing budesonide-formoterol 80-4.5 mcg/actuation (Symbicort) 2 puffs inhalation BID 10.2 grams 2RF R05 - Cough, R06.2 - Wheezing albuterol sulfate 90 mcg/actuation 2 puffs inhalation Q4-6H PRN 6.7 grams 0RF shortness of breath or wheezing R05 - Cough, R06.2 - Wheezing azithromycin 500 mg PO DAILY 3 tabs 0RF 3 days R05 - Cough Coding Level of Care Code Est Pt Level 4 (74555) Diagnoses Wheezing on auscultation R06.2 Cough R05 CPT Codes Nebulizer Treatment - Nebulizer Treatment, initial or subsequent: 44650- Nebulizer/MDI RX initial, or Nebulizer Subsequent Treatment ([id number]) Time Spent (min) 20
== END 2025-01-05 12:01 | disposition home or self-care (01) ==
PROVIDERS: PCP Internal Medicine; Visit Provider Nurse Practitioner Family
DX: R06.2 Wheezing (principal); R05.9 Cough, unspecified

== ENCOUNTER 2025-01-05 10:35 | Outpatient (REF) | payer OTHER, SELFPAY ==
--- NOTE | ~2025-01-05 | XR_ITS ---
CLINICAL HISTORY: R05.9 - Cough, unspecified --- Additional Notes or Special Instructions: 34 y o Female patient with c o SOB, wheezing, productive cough since Yesterday. 2 view chest x-ray Comparison: None provided Findings: No consolidation or effusion. Normal size heart. No acute fracture. IMPRESSION: 1. No acute findings. This document has been electronically signed by: Fredi Renee DO on 01/05/2025 13:30:22
== END 2025-01-05 10:36 | disposition home or self-care (01) ==
LOC: HO.HMGCX 10:35
PROVIDERS: PCP Internal Medicine; Visit Provider Nurse Practitioner Family
DX: R06.2 Wheezing (principal); R05.9 Cough, unspecified
CPT/HCPCS: 71046; 94640; 99212

== ENCOUNTER → 2025-01-05 11:44 | Outpatient (BNV) | payer OTHER, SELFPAY | PROVIDERS: PCP Internal Medicine; Visit Provider Family Medicine | DX: R05.9 Cough, unspecified (principal) | CPT/HCPCS: 71046 ==